=== PATIENT | female | born 1940 | race Caucasian/White ===

== ENCOUNTER 2018-06-04 21:27 | Emergency (ER) | payer MEDICARE, OTHER ==
[~2018-06-04] VITALS: Ht 157.5 cm; Wt 62.1 kg
--- NOTE | 2018-06-04 21:35 | NUR ---
PT BROWN FROM [facility]IS CENTER FOR HIGH BP, PER PA, PT BP POST DIALYSIS 210/100. PT COMPLETED DIALYSIS, 1.2KG REMOVED. PT'S LOC AT BASELINE. AFEBRILE. PT ON MONITOR IN BED 3 WITH SON AT BEDSIDE. WILL CONTINUE TO MONITOR.
--- NOTE | 2018-06-04 21:45 | NUR ---
TECH AT BEDSIDE FOR EKG
--- NOTE | 2018-06-04 22:04 | NUR ---
PT RECEIVED FROM TRANSPORT ON VENT VIA TRACH, SETTINGS CHARTED. TRACH SECURED VIA TRACH TIE. AIRWAY PATENT. PT AWAKE. AMBU BAG AND BACKUP TRACH AT BEDSIDE ALARMS SET AND AUDIBLE. DISCONNECT ALARMS CHECKED. VENT PLUGGED INTO RED OUTLET. SUCTIONED A SMALL AMOUNT OF THICK YELLOW SECRETIONS. ORAL SECRETIONS SUCTIONED FROM MOUTH VIA YANKAUER. HEAD OF BED AT 30 DEGREES. PT RECEIVING NO BREATHING TX AT THIS TIME Addendum: 06/04/18 at 2209 by JAY RITCHIE RT Amended: Links added.
[2018-06-04 22:05] LABS: BASOPHILS # (AUTO) 0.1 /CMM (0.0-0.2); BASOPHILS % (AUTO) 0.7 % (0.0-2.0); EOSINOPHILS % (AUTO) 1.2 % (0.0-6.0); HEMATOCRIT 25 % (33-45); HEMOGLOBIN 8.4 g/dL (11.5-14.8); LYMPHOCYTES # (AUTO) 0.3 /CMM (0.8-4.8); LYMPHOCYTES % (AUTO) 3.8 % (20.0-44.0); MEAN CORPUSCULAR HGB CONC 33 g/dl (31.0-36.0); MEAN CORPUSCULAR VOLUME 95 fL (82-100); MONOCYTES # (AUTO) 0.8 /CMM (0.1-1.30); MONOCYTES % (AUTO) 9.2 % (2.0-12.0); NEUTROPHILS # (AUTO) 7.7 /CMM (1.8-8.9); NEUTROPHILS % (AUTO) 85.1 % (43.0-81.0); PLATELET COUNT (AUTO) 577 /CMM (150-450); RED BLOOD CELL COUNT(AUTO) 2.66 MIL/uL (4.0-5.2); WHITE BLOOD COUNT (AUTO) 9.1 K/uL (4.3-11.0)
[2018-06-04 22:15] LABS: CALCIUM, SERUM 9.5 mg/dL (8.5-10.1); CARBON DIOXIDE 27 mmol/L (21-32); CHLORIDE 103 mmol/L (98-107); CREATININE 1.1 mg/dL (0.6-1.3); GLUCOSE 82 mg/dL (74-106); POTASSIUM 3.4 mmol/L (3.5-5.1); SODIUM SERUM 139 mmol/L (136-145); UREA NITROGEN, BLOOD 22 mg/dL (7-18)
[2018-06-04 22:21] LABS: ALANINE AMINOTRANSFERASE 16 U/L (12-78); ALBUMIN 1.9 g/dL (3.4-5.0); ALKALINE PHOSPHATASE 142 U/L (46-116); ASPARTATE AMINOTRANSFERASE 26 U/L (15-37); BILIRUBIN,DIRECT 0.1 mg/dL (0.0-0.2); BILIRUBIN,TOTAL 0.4 mg/dL (0.2-1.0); LIPASE 218 U/L (73-393); TOTAL PROTEIN, SERUM 7.4 g/dL (6.4-8.2)
[2018-06-04 22:47] VITALS: BP 113/30
[2018-06-04 23:15] VITALS: BP 159/75
--- NOTE | 2018-06-04 23:31 | NUR ---
YENNY 0100 TRIP#[id number] Addendum: 06/04/18 at 2332 by CLAUDY JANIS RAMON 0100 TRIP#[id number]
--- NOTE | 2018-06-04 23:34 | NUR ---
PAGED DR SHAH REGARDING THIS PATIENT.
--- NOTE | 2018-06-05 00:29 | NUR ---
REPORT GIVEN TO JEOVANY PURDY AT [facility] FOR THERON
--- NOTE | 2018-06-05 00:30 | NUR ---
PT TAKEN VIA PA
== END 2018-06-05 00:57 | disposition short-term general hospital (02) ==
LOC: ER 21:29
DX: D63.1 Anemia in chronic kidney disease (principal); E11.22 Type 2 diabetes mellitus with diabetic chronic kidney disease; I12.0 Hypertensive chronic kidney disease with stage 5 chronic kidney disease or end stage renal disease; N18.6 End stage renal disease; J96.10 Chronic respiratory failure, unspecified whether with hypoxia or hypercapnia; F03.90 Unspecified dementia, unspecified severity, without behavioral disturbance, psychotic disturbance, mood disturbance, and anxiety; I73.9 Peripheral vascular disease, unspecified; I48.91 Unspecified atrial fibrillation; K21.9 Gastro-esophageal reflux disease without esophagitis; F41.9 Anxiety disorder, unspecified; R13.10 Dysphagia, unspecified; G47.00 Insomnia, unspecified; R94.31 Abnormal electrocardiogram [ECG] [EKG]; Z86.74 Personal history of sudden cardiac arrest
CPT/HCPCS: 36415; 80048-TC; 80076-TC; 83690-TC; 84484-TC; 85025-TC

== ENCOUNTER 2018-08-08 18:29 | Inpatient (IN) | payer MEDICARE, OTHER ==
[~2018-08-08] VITALS: Ht 157.5 cm; Wt 73.0 kg
[2018-08-08 18:50] VITALS: BP 116/25
--- NOTE | 2018-08-08 19:00 | NUR ---
PT BIBPA FOR LOW BLOOD PRESSURE FROM DIALYSIS CENTER. PER EMT, DAILYSIS CENTER DID NOT HAVE THIGH CUFFF. PT ON THE VENTILATOR, SETTING AC 8, PEEP 5, 40% O2. PT AXO0. PT PUT ON THE INTERNAL CONTROLS ANALYST AND PULSE OX.
--- NOTE | 2018-08-08 19:19 | NUR ---
RECEIVED TRACH PT ON VENT. CAME TO ER FOR LOW BP. SETTINGS FROM TRANSPORT RT AC 8, 350, 40%, +5. PT TRACH IS A SHILEY 8. TRACH PATENT AND WELL SECURED. PHOTOGRAMMETRIC SURVEYOR DONE. VENT PLUGGED INTO RED OUTLET. ALARMS TESTED AND WELL FUNCTIONING WITH AMBU BAG PLACED AT BEDSIDE. SX MODERATE AMOUNT OF THICK YELLOW SECRETIONS. WILL CONT TO MONITOR PT. Addendum: 08/08/18 at 2 by MAX AHMADI RT Amended: Links added.
[2018-08-08 19:29] LABS: BASOPHILS % (AUTO) 0.2 % (0.0-2.0); EOSINOPHILS % (AUTO) 0.1 % (0.0-6.0); HEMATOCRIT 26 % (33-45); HEMOGLOBIN 8.6 g/dL (11.5-14.8); LYMPHOCYTES # (AUTO) 0.4 /CMM (0.8-4.8); LYMPHOCYTES % (AUTO) 4.7 % (20.0-44.0); MEAN CORPUSCULAR HGB CONC 34 g/dl (31.0-36.0); MEAN CORPUSCULAR VOLUME 93 fL (82-100); MONOCYTES # (AUTO) 0.8 /CMM (0.1-1.30); MONOCYTES % (AUTO) 8.7 % (2.0-12.0); NEUTROPHILS # (AUTO) 7.5 /CMM (1.8-8.9); NEUTROPHILS % (AUTO) 86.3 % (43.0-81.0); PLATELET COUNT (AUTO) 185 /CMM (150-450); RED BLOOD CELL COUNT(AUTO) 2.74 MIL/uL (4.0-5.2); WHITE BLOOD COUNT (AUTO) 8.7 K/uL (4.3-11.0)
--- NOTE | 2018-08-08 19:37 | NUR ---
XRAY AT BEDSIDE.
[2018-08-08 19:42] LABS: ALANINE AMINOTRANSFERASE 10 U/L (12-78); ALBUMIN 1.5 g/dL (3.4-5.0); ALKALINE PHOSPHATASE 137 U/L (46-116); ASPARTATE AMINOTRANSFERASE 16 U/L (15-37); BILIRUBIN,DIRECT 0.1 mg/dL (0.0-0.2); BILIRUBIN,TOTAL 0.3 mg/dL (0.2-1.0); CALCIUM, SERUM 9.1 mg/dL (8.5-10.1); CARBON DIOXIDE 31 mmol/L (21-32); CHLORIDE 96 mmol/L (98-107); GLUCOSE 128 mg/dL (74-106); POTASSIUM 5.4 mmol/L (3.5-5.1); SODIUM SERUM 132 mmol/L (136-145); TOTAL PROTEIN, SERUM 6.5 g/dL (6.4-8.2)
[2018-08-08 19:43] LABS: UREA NITROGEN, BLOOD 86 mg/dL (7-18)
--- NOTE | 2018-08-08 20:54 | NUR ---
CALLED [employer] ON-CALL PAGED
[2018-08-08 20:59] VITALS: BP 103/75
--- NOTE | 2018-08-08 21:30 | NUR ---
CALLED [facility] [phone] ITS [facility] [place]
--- NOTE | 2018-08-08 22:00 | NUR ---
BED 120-1
--- NOTE | 2018-08-08 22:25 | NUR ---
REPORT GIVEN TO LUCY THAYER FOR THERON.
[2018-08-08 22:35] VITALS: BP 121/69
--- NOTE | 2018-08-08 22:55 | NUR ---
MARY LOU RN NOTES RECEIVED PATIENT REPORT FROM SUPERVISOR REAL ESTATE OFFICE AND RECEIVED PATIENT ON JUJU. PATIENT I VENT/ TRACH DEPENDANT, ON SETTINGS ORDERED RT AT THE BEDSIDE. PATIENT WAS PLACED ON ZIPPER SLIDE ATTACHER WITH SR, RIGHT UPPER ARM IV LINE IS PATIENT AND INTACT. G TUBE IS IN PLACE, CHECKED FOR POSITIVE PLACEMENT. SKIN ASSESSMENT IS DONE AND WOUND CARE CONSULT IS IN PLACE. CALLED THE SNF AND ASKED FOR ALL CURRENT MEDICATIONS LIST AND MED RECON IS DONE. ALL SAFETY MEASURES ARE IMPLEMENTED, BED IN LOW, LOCKED POSITION, CALL LIGHT IN REACH. WILL CONTINUE TO MONITOR PATIENT CLOSELY.WILL INDORSE TO AM SHIFT RN FOR ARMORED CAR GUARD AND DRIVER.
[2018-08-08 23:00] VITALS: BP 121/69
[2018-08-09] MEDS ORDERED: ONDANSETRON HCL/PF 4 MG/2 ML VIAL IVP PRN (00:30)
[2018-08-09] MEDS ORDERED: MAGNESIUM HYDROXIDE 30 ML UDC PO PRN (00:30)
[2018-08-09] MEDS ORDERED: ZOLPIDEM TARTRATE 5 MG TABLET PO PRN (00:30)
[2018-08-09] MEDS ORDERED: ACETAMINOPHEN 325 MG TABLET PO PRN (00:30)
[2018-08-09] MEDS ORDERED: MAG HYDROX/AL HYDROX/SIMETH 30 ML UDC PO PRN (00:30)
[2018-08-09] MEDS ORDERED: DEXT15DR6 EACHEYE (02:11)
[2018-08-09] MEDS ORDERED: HYDR-4384 GT ×2 (02:11→08:11)
[2018-08-09] MEDS ORDERED: NA P133E RC (02:11)
[2018-08-09] MEDS ORDERED: ZINC220C8 GT (02:11)
[2018-08-09] MEDS ORDERED: LANS30CA56 GT (02:11)
[2018-08-09] MEDS ORDERED: AMIO200T4 GT (02:11)
[2018-08-09] MEDS ORDERED: ALPR0.5T GT ×2 (02:11→08:11)
[2018-08-09] MEDS ORDERED: FOLI0.8T2 GT (02:11)
[2018-08-09] MEDS ORDERED: LINE600I IV (02:11)
[2018-08-09] MEDS ORDERED: MERO500P IV (02:11)
[2018-08-09] MEDS ORDERED: METO50TA16 GT (02:11)
[2018-08-09] MEDS ORDERED: ACET160E36 GT (02:11)
[2018-08-09] MEDS ORDERED: MAGN400O21 GT (02:11)
[2018-08-09] MEDS ORDERED: VIT500LI GT (02:11)
[2018-08-09] MEDS ORDERED: BISA10SU61 RC (02:11)
[2018-08-09] MEDS ORDERED: *INS NOVA SQ (02:11)
[2018-08-09] MEDS ORDERED: ASPI-605 GT (02:11)
[2018-08-09] MEDS: NEPRO 1,000 ML BOTTLE GT PRN (03:13)
[2018-08-09 04:00] VITALS: BP 113/28
--- NOTE | 2018-08-09 05:43 | NUR ---
PATIENT RECEIVED ON TRACH TO VENT WITH SETTINGS OF AC 8, 350 VT, 40%, +5. SUCTIONED FOR MINIMAL, THIN, YELLOW SECRETIONS. AMBU BAG AT BEDSIDE. VENT AND PULSE OXIMETER ALARMS AUDIBLE AND VISIBLE. VENT PLUGGED INTO RED OUTLET. Addendum: 08/09/18 at 0544 by EMILY MALDONADO RT Amended: Links added.
--- NOTE | 2018-08-09 07:00 | NUR ---
NUTRITIONAL SERVICES DIRECTOR OPENING NOTES RECEIVED PT IN BED, HOB ELEVATED 30 DEG ON VENT TOLERATING WELL. NO S/SX OF RESP DISTRESS. MITTENS ON BOTH HANDS. RIGHT HAND BLOODY, PER PM NURSE, PT SCRATCHES SKIN AGAINST MITTEN. PT ABLE TO MOUTH WORDS, A/OX2. SR ON TELE. NEPRO GTF RUNNING AT 30 ML/HR. NO RESIDUAL NOTED. FRANCI IV LINE IN PLACE. BED IN LOCKED/LOWEST POSITION. CALL LIGHT IN REACH. WILL CONT TO MONITOR.
[2018-08-09 08:00] VITALS: BP 111/46
[2018-08-09] MEDS ORDERED: POLY15DR40 EACHEYE (08:11)
[2018-08-09] MEDS ORDERED: MAGN400O6 GT (08:11)
[2018-08-09] MEDS ORDERED: BLOO-668 IN (08:11)
[2018-08-09] MEDS ORDERED: NUT.237L67 GT (08:11)
[2018-08-09] MEDS: HYDROCODONE/APAP 5/325MG 1 EACH TABLET PO PRN (11:53)
[2018-08-09 12:00] VITALS: BP 132/59
[2018-08-09] MEDS ORDERED: NA PHOS,M-B/NA PHOS,DI-BA 1 EA ENEMA RC PRN (14:00)
[2018-08-09] MEDS ORDERED: BISACODYL SUPP (10 MG) 10 MG/SUPP.RECT SUPP.RECT RC PRN (14:00)
[2018-08-09] MEDS ORDERED: NEPRO 1,000 ML BOTTLE GT SCH (14:00)
[2018-08-09] MEDS ORDERED: POLYVINYL ALCOHOL 15 ML BOTTLE EACHEYE PRN (14:00)
[2018-08-09] MEDS: MEROPENEM 500 MG in IV NS 0.9% 50 ML IV SCH (15:35)
[2018-08-09] MEDS: DAKINS QUARTER STRENGTH (0.125%) 480 ML BOTTLE TOP SCH ×2 (15:35→21:46)
[2018-08-09 16:00] VITALS: BP 119/49
[2018-08-09] MEDS: IPRATROPIUM NEB FS 0.5 MG/2.5 ML AMPUL.NEB NEB SCH ×2 (16:06→20:11)
[2018-08-09] MEDS: ALBUTEROL HALF STRENGTH 1.25 MG/3 ML VIAL.NEB NEB SCH ×2 (16:06→23:08)
[2018-08-09] MEDS: ACETYLCYSTEINE 10% SOLN 400 MG/4 ML VIAL NEB SCH ×2 (16:06→23:08)
[2018-08-09] MEDS: ALPRAZOLAM 0.5 MG TABLET GT PRN (18:00)
--- NOTE | 2018-08-09 19:07 | NUR ---
INTERNAL MEDICINE PHYSICIAN END OF SHIFT NOTES PT IN BED, MITTENS ON BOTH HANDS. PT STILL PULLING AT LINES WHEN REMOVED. GTF RUNNING WITH NO RESIDUAL NOTED. EXTREMITIES OFFLOADED. KCI MATTRESS ON BED, PT TOLERATED TREATMENTS WELL. SITTER AT BEDSIDE. ON VENT SETTINGS TOLERATING WELL. WILL ENDORSE TO [facility] NURSE FOR THERON.
[2018-08-09 20:00] VITALS: BP 103/53
[2018-08-09] MEDS: METOPROLOL TARTRATE 50 MG TABLET GT SCH (21:42)
[2018-08-09] MEDS: AMIODARONE HCL 200 MG TABLET GT SCH (21:43)
[2018-08-09] MEDS: LINEZOLID RTU BAG 600 MG in PREMIX 1 EA IV SCH (21:45)
[2018-08-10] VITALS: BP 110/61
[2018-08-10] MEDS: IPRATROPIUM NEB FS 0.5 MG/2.5 ML AMPUL.NEB NEB SCH ×4 (01:30→19:45)
[2018-08-10 04:00] VITALS: BP 109/58
[2018-08-10] MEDS: MEROPENEM 500 MG in IV NS 0.9% 50 ML IV SCH ×2 (04:36→15:41)
[2018-08-10 06:26] LABS: BASOPHILS % (AUTO) 0.3 % (0.0-2.0); EOSINOPHILS % (AUTO) 0.1 % (0.0-6.0); HEMATOCRIT 24 % (33-45); HEMOGLOBIN 7.9 g/dL (11.5-14.8); LYMPHOCYTES # (AUTO) 0.4 /CMM (0.8-4.8); LYMPHOCYTES % (AUTO) 3.6 % (20.0-44.0); MEAN CORPUSCULAR HGB CONC 33 g/dl (31.0-36.0); MEAN CORPUSCULAR VOLUME 92 fL (82-100); MONOCYTES # (AUTO) 1.2 /CMM (0.1-1.30); MONOCYTES % (AUTO) 10.3 % (2.0-12.0); NEUTROPHILS # (AUTO) 9.9 /CMM (1.8-8.9); NEUTROPHILS % (AUTO) 85.7 % (43.0-81.0); PLATELET COUNT (AUTO) 208 /CMM (150-450); RED BLOOD CELL COUNT(AUTO) 2.61 MIL/uL (4.0-5.2); WHITE BLOOD COUNT (AUTO) 11.6 K/uL (4.3-11.0)
[2018-08-10 06:48] LABS: ALANINE AMINOTRANSFERASE 12 U/L (12-78); ALBUMIN 1.5 g/dL (3.4-5.0); ALKALINE PHOSPHATASE 185 U/L (46-116); ASPARTATE AMINOTRANSFERASE 19 U/L (15-37); BILIRUBIN,TOTAL 0.4 mg/dL (0.2-1.0); CALCIUM, SERUM 8.9 mg/dL (8.5-10.1); CARBON DIOXIDE 28 mmol/L (21-32); CHLORIDE 95 mmol/L (98-107); CREATININE 1.8 mg/dL (0.6-1.3); GLUCOSE 149 mg/dL (74-106); MAGNESIUM 2.4 mg/dL (1.8-2.4); PHOSPHORUS 3.3 mg/dL (2.5-4.9); SODIUM SERUM 131 mmol/L (136-145); TOTAL PROTEIN, SERUM 6.5 g/dL (6.4-8.2)
[2018-08-10 06:49] LABS: UREA NITROGEN, BLOOD 86 mg/dL (7-18)
--- NOTE | 2018-08-10 07:30 | NUR ---
GRAIN ELEVATOR CLERK NOTES RECEIVED REPORT FROM SENIOR ENGINEERING TECHNICIAN RN. PT IN BED, MITTENS ARE OFF BOTH HANDS. PT STILL PULLING AT LINES WHEN REMOVED. GTF RUNNING WITH NO RESIDUAL NOTED. EXTREMITIES OFFLOADED. KCI MATTRESS ON BED, PT TOLERATED TREATMENTS WELL. SITTER AT BEDSIDE. ON VENT SETTINGS TOLERATING WELL. WILL CONTINUE TO MONITOR.
[2018-08-10 07:50] LABS: CHOLESTEROL 97 mg/dL (<200); HDL CHOLESTEROL 49 mg/dL (40-60); LDL 43 mg/dL (0-99); THYROID STIMULATING HORMONE 4.842 uIU/mL (0.358-3.74); TRIGLYCERIDES 91 mg/dL (30-150)
[2018-08-10 08:00] VITALS: BP 125/72
[2018-08-10] MEDS: ALBUTEROL HALF STRENGTH 1.25 MG/3 ML VIAL.NEB NEB SCH ×3 (08:10→23:35)
[2018-08-10] MEDS: ACETYLCYSTEINE 10% SOLN 400 MG/4 ML VIAL NEB SCH ×3 (08:11→23:35)
[2018-08-10] MEDS: ASPIRIN EC 81 MG TABLET.DR PO SCH (09:25)
[2018-08-10] MEDS: ZINC SULFATE 220 MG CAPSULE GT SCH (09:25)
[2018-08-10] MEDS: VIT B CMPLX 3/FA/VIT C/BIOTIN 1 TAB TABLET GT SCH (09:25)
[2018-08-10] MEDS: ASCORBIC ACID 500 MG TABLET GT SCH (09:26)
[2018-08-10] MEDS: METOPROLOL TARTRATE 50 MG TABLET GT SCH ×2 (09:26→21:23)
[2018-08-10] MEDS: AMIODARONE HCL 200 MG TABLET GT SCH ×2 (09:26→21:22)
[2018-08-10] MEDS: LINEZOLID RTU BAG 600 MG in PREMIX 1 EA IV SCH ×2 (09:27→21:35)
[2018-08-10] MEDS: DAKINS QUARTER STRENGTH (0.125%) 480 ML BOTTLE TOP SCH ×2 (09:28→21:25)
[2018-08-10] MEDS: CADEXOMER IODINE 40 GM TUBE TP SCH (09:29)
[2018-08-10] MEDS ORDERED: LIDOCAINE 2%-EPI 1:100,000 30 ML VIAL TP ONE (09:30)
[2018-08-10] MEDS ORDERED: EPOETIN ALFA (10,000 UNIT) 10,000 UNIT/ML VIAL IV ONE (09:30)
[2018-08-10] MEDS: ALPRAZOLAM 0.5 MG TABLET GT PRN (09:44)
--- NOTE | 2018-08-10 10:03 | NUR ---
WOUND CARE CONSULT WOUND CARE RECEIVED CONSULT FOR SACRAL WOUND/MULTIPLE WOUNDS. WOUND CARE WILL DEFER CONSULT AND ALL TREATMENT PLANS TO PLASTIC SURGICAL TEAM INCLUDING DPM DR FOURNIER THE ARE CURRENTLY FOLLOWING THIS PATIENT. PATIENT WITH EMILIA AT 11, ALL PRESSURE ULCER PREVENTION MEASURES ARE NOTED TO BE IN PLACE AT THIS TIME. WILL SEE PRN.
--- NOTE | 2018-08-10 10:45 | NUR ---
PROFESSOR OF KINESIOLOGY NOTES ASSISTED STEPHANIE ARECHIGA WITH WOUND DEBRIDEMENT AT BEDSIDE OF SACRAL WOUND STAGE 4. COUNTY MANAGER PACKED WOUND AND COVERED.
[2018-08-10 11:33] LABS: IRON, SERUM 85 ug/dl (50-175); TOTAL IRON BINDING CAPACITY 108 ug/dl (250-450)
[2018-08-10 12:00] VITALS: BP 117/53
[2018-08-10 16:00] VITALS: BP 123/71
[2018-08-10 17:35] LABS: ABG BASE EXCESS 5.7 mmol/L; ABG PCO2 44.4 mmHg (35.0-45.0); ABG PH 7.451 (7.350-7.450); ABG PO2 87.2 mmHg (75.0-100.0); AaDO2 146.9 mmHg; COHb 1.1 % (0.5-1.5); MetHb 0.9 % (0.0-1.5); O2Hb 94.1 % (94.0-97.0); PEEP,BG 5 cm H2O; SITE, ABG Left Brachial; VT, ABG 350 mL
--- NOTE | 2018-08-10 19:42 | NUR ---
RN CLOSING NOTES GAVE REPORT TO BRANCH CREDIT COUNSELOR RN. PT IN BED, MITTENS ARE ON BOTH HANDS. PT STILL PULLING AT LINES WHEN REMOVED. GTF RUNNING WITH NO RESIDUAL NOTED. EXTREMITIES OFFLOADED. KCI MATTRESS ON BED, PT TOLERATED TREATMENTS WELL. SITTER AT BEDSIDE. ON VENT SETTINGS TOLERATING WELL. WILL ENDORSE CONTINUITY OF CARE TO BRANCH CREDIT COUNSELOR RN.
--- NOTE | 2018-08-10 19:45 | NUR ---
RT PT RECEIVED TRACHED ON [facility] VENT ON CHARTED SETTINGS. NO SIGNS OF RESP DISTRESS/NOTED. AIRWAY PATENT AND SECURED. PT SUCTIONED. PT GIVEN HHN TX. ALARMS SET AND AUDIBLE. VENT CONNECTED TO RED OUTLET. WILL CONT TO MONITOR. Addendum: 08/10/[address] ARMAS RT Amended: Links added.
[2018-08-10 20:00] VITALS: BP 91/35
[2018-08-11] VITALS (107 sets, daily range): BP systolic 63–153; BP diastolic 23–63
[2018-08-11] MEDS: IPRATROPIUM NEB FS 0.5 MG/2.5 ML AMPUL.NEB NEB SCH ×4 (01:32→19:54)
[2018-08-11] MEDS: NEPRO 1,000 ML BOTTLE GT PRN ×2 (03:18→13:30)
[2018-08-11] MEDS: MEROPENEM 500 MG in IV NS 0.9% 50 ML IV SCH ×2 (03:18→15:04)
[2018-08-11] MEDS: HYDROCODONE/APAP 5/325MG 1 EACH TABLET PO PRN ×3 (03:30→15:04)
--- NOTE | 2018-08-11 05:11 | NUR ---
RT RT RESPOND TO RAPID RESPONSE TO SEE THE PATIENT UNRESPONSIVE AND SPO2 OF 89%. PT SUCTIONED. FIO2 SETTINGS CHANGED TO 100% PER MD ORDER. SPO2 INCREASE TO 100%. PT TRANSFER TO ICU.
--- NOTE | 2018-08-11 05:30 | NUR ---
RN NOTES AROUND 0520 HEARD RN CHRIS ASKED EXHIBIT CLEANER TO CALL RT BEC PATIENT UNRESPONSIVE. WENT TO PATIENT ROOM , OTHER STAFF WENT TO THE ROOM; PATIENT ON VENT, UNRESPONSIVE; CALLED WELDER FABRICATOR; BP TAKEN 85/28 BS CHECKED 212 O2 SAT86%; EMILEE MCCLELLAN NP AT THE SEEN RIGHT AWAY. AWARE OF THE V/S VERBAL ORDER OBTAINED FOR 500ML NS BOLUS AND TRANSFER TO ICU. EXHIBIT CLEANER CALLED ICU FOR BED; ORDERS PUT IN AND SPOKE TO APPLICATION SPECIALIST. BOLUS STARTED BY ANOTHER RN. ICU HORTICULTURAL FARMER ED AWARE OF LEVOPHED ORDER. TRANSFERRED PATIENT AROUND 0530 BY BED. INSTRUCTED CHRIS, PRIMARY RN TO NOTIFY FAMILY OF TRANSFER.
--- NOTE | 2018-08-11 05:40 | NUR ---
VOICE AND DATA TECHNICIAN: RECEIVED CHRONIC VENT DEPENDENT PT FROM TELE. ABLE TO OPEN EYES BUT NOT FOLLOWING COMMANDS. NOTED SKIN PALE LOOKING AND S/P SACRAL DEBRIDEMENT WT LARGE AMT. OF SACRAL WOUND BLEEDING. ONGOING NS 500 ML BOLUS. CALLED AND NOTIFIED STEPHANIE HEBERT WT STAT LAB ORDERS. NOTED AND CARRIED OUT.
--- NOTE | 2018-08-11 05:59 | NUR ---
RN NOTES PATIENT RECIEVED IN BED, AWAKE ALERT AND RESPONSIVE, NOTED WITH CONFUSION. NO DISTRESS NOTED. BREATHING EVEN AND UNLABORED. VENT SETTING WELL TOLERATED. NO PHYSICAL MANIFESTATION OF PAIN OR DISCOMFORT. VITAL SIGNS WNL. KEPT CLEAN AND DRY. TURNED AND REPOSITION EVERY TWO HOURS WITH LIMBS IN FUNCTIONAL ALIGNMENT. NORCO GIVEN FOR PAIN PRIOR TO WOUND TREATMENT STARTED AT 0330. NOTED WITH BLEEDING IN SACRUM STATUS POST WOUND DEBRIBEMENT. PEG TUBE IN PLACE, PATENT AND INTACT. FEEDING WELL TOLERATED. NO RESIDUAL NOTED. AT AROUND 0520 NOTED PATIENT TO BE UNRESPONSIVE WITH 02SAT BETWEEN 88 TO 92%. SUCTIONED SMALL AMOUNT OF YELLOWISH THIN SECRETION. CALLED PATIENT'S NAME, STIMULATED STILL WITH NO RESPONSE AND OBSERVED SATURATION GOING DOWN TO 82%. CALLED RAPID RESPONSE. SEEN BY DR HEBERT WITH ORDERS FOR FiO2 CHANGE, BOLUS 500ML, LEVOPHED IV DRIP AND TRANSFER TO ICU. NOTED AND CARRIED OUT. TRANSFERRED AT 053. REPORTS GIVEN TO VENICE AND ED.
[2018-08-11 06:10] LABS: BASOPHILS % (AUTO) 0.1 % (0.0-2.0); EOSINOPHILS % (AUTO) 0.1 % (0.0-6.0); LYMPHOCYTES # (AUTO) 0.5 /CMM (0.8-4.8); LYMPHOCYTES % (AUTO) 3.3 % (20.0-44.0); MEAN CORPUSCULAR HGB CONC 32 g/dl (31.0-36.0); MEAN CORPUSCULAR VOLUME 94 fL (82-100); MONOCYTES # (AUTO) 1.6 /CMM (0.1-1.30); MONOCYTES % (AUTO) 10.5 % (2.0-12.0); NEUTROPHILS # (AUTO) 13.1 /CMM (1.8-8.9); PLATELET COUNT (AUTO) 198 /CMM (150-450); WHITE BLOOD COUNT (AUTO) 15.3 K/uL (4.3-11.0)
[2018-08-11] MEDS ORDERED: NOREPINEPHRINE 4 MG/4 ML AMPUL IV ONE (06:20)
[2018-08-11 06:25] LABS: HEMOGLOBIN 3.6 g/dL (11.5-14.8); RED BLOOD CELL COUNT(AUTO) 1.21 MIL/uL (4.0-5.2)
[2018-08-11 06:26] LABS: HEMATOCRIT 11 % (33-45)
[2018-08-11 06:26] LABS: ABG OXYGEN SATURATION 46.8 % (92.0-98.5); ABG PCO2 63.5 mmHg (35.0-45.0); ABG PH 7.215 (7.350-7.450); ABG PO2 32.8 mmHg (75.0-100.0); AaDO2 616.7 mmHg; COHb 0.3 % (0.5-1.5); MetHb 2.4 % (0.0-1.5); O2Hb 45.5 % (94.0-97.0); PEEP,BG 5 cm H2O; SITE, ABG Right Radial; VT, ABG 350 mL
[2018-08-11 06:28] LABS: CALCIUM, SERUM 8.1 mg/dL (8.5-10.1); CARBON DIOXIDE 24 mmol/L (21-32); CHLORIDE 102 mmol/L (98-107); CREATININE 1.7 mg/dL (0.6-1.3); GLUCOSE 206 mg/dL (74-106); MAGNESIUM 2.2 mg/dL (1.8-2.4); PHOSPHORUS 3.5 mg/dL (2.5-4.9); POTASSIUM 4.7 mmol/L (3.5-5.1); SODIUM SERUM 137 mmol/L (136-145); UREA NITROGEN, BLOOD 73 mg/dL (7-18)
[2018-08-11] MEDS: NOREPINEPHRINE 16 MG in IV D5W 500 ML IV PRN ×2 (06:29→15:21)
[2018-08-11] MEDS ORDERED: SODIUM BICARBONATE SYR 50 MEQ/50 ML DISP.SYRIN IV STA (06:34)
[2018-08-11] MEDS ORDERED: SODIUM BICARBONATE SYR 50 MEQ/50 ML DISP.SYRIN ONE (06:36)
--- NOTE | 2018-08-11 06:40 | NUR ---
REGIONAL BUSINESS MANAGER: NOTIFIED STEPHANIE HEBERT FOR CRITICALLY LOW H&H AND ABG RESULTS WT ORDERS FOR 2UNITS PRBC AND TO GIVE 1 AMP OF BICARB IV. NOTED AND CARRIED OUT. PT NOW ON LEVOPHED AT 5MCG/MIN. WILL CONTINUE TO MONITOR.
--- NOTE | 2018-08-11 07:10 | NUR ---
Peep changed to +0 per promotional advertising assistant. Addendum: 08/11/18 at 0740 by BO VIVEROS RT Amended: Links added.
[2018-08-11 07:14] LABS: ABG OXYGEN SATURATION 98.9 % (92.0-98.5); ABG PCO2 55.3 mmHg (35.0-45.0); ABG PH 7.321 (7.350-7.450); AaDO2 272.7 mmHg; COHb 1.2 % (0.5-1.5); O2Hb 95.7 % (94.0-97.0); PEEP,BG 5 cm H2O; SITE, ABG Left Brachial; VT, ABG 350 mL
[2018-08-11 07:16] LABS: BAND % (MANUAL) 7 % (0.0-5.0); LYMPHOCYTES % (MANUAL) 3 % (16-48); MONOCYTES % (MANUAL) 8 % (0-11.0); MYELOCYTES % 1 % (0-0); NEUTROPHILS % (MANUAL) 81 (42-76)
--- NOTE | 2018-08-11 07:20 | NUR ---
HOME CARE NURSE: pt.is obtunded, can open eyes spont. for seconds, rest, weak arms uncontrolled activity, uncooperative, very weak, pale, on B.mittens, SR, on 5mcg/m Levophed, BP 90/30, will increase Levo, peep changed to 0, ABG done: pH 7.32/55/385/27, hold GTF now, called to son, got BT, PICC placement consent, H/H 3.6, night nurse confirmed: ordered STAT 2 units PRBC
--- NOTE | 2018-08-11 07:25 | NUR ---
O2 titrated post abg, vent setting changes recommended to MD Addendum: 08/11/18 at 0751 by BO VIVEROS RT Amended: Links added.
--- NOTE | 2018-08-11 07:25 | NUR ---
REGIONAL CLIMATE CHANGE ANALYST: GT is occluded
[2018-08-11] MEDS: ACETYLCYSTEINE 10% SOLN 400 MG/4 ML VIAL NEB SCH ×2 (07:48→15:23)
[2018-08-11] MEDS: ALBUTEROL HALF STRENGTH 1.25 MG/3 ML VIAL.NEB NEB SCH ×2 (07:48→15:23)
--- NOTE | 2018-08-11 08:10 | NUR ---
SET OFF PRESS OPERATOR: getting Levophed via PIVL, blood return+, unable to place PIVL over arms d/t edema, removed arms dressing, old AV shunts on both arms, nobody reported, called HD nurse Bertha for verification and possible start HD today for blood transfusion via R.chest permcath, is in unit, updated with all above, ABG, changed Rate on vent to 10, called for TLC placement
--- NOTE | 2018-08-11 08:20 | NUR ---
RR INCREASED TO 10 PER ADRIEN PHOTOGRAPHIC ARTIST ORDERS Addendum: 08/11/18 at 0820 by JULY OROZCO RT Amended: Links added.
[2018-08-11] MEDS: ZINC SULFATE 220 MG CAPSULE GT SCH (09:00)
[2018-08-11] MEDS: ASCORBIC ACID 500 MG TABLET GT SCH (09:00)
[2018-08-11] MEDS: VIT B CMPLX 3/FA/VIT C/BIOTIN 1 TAB TABLET GT SCH (09:00)
[2018-08-11] MEDS: ASPIRIN EC 81 MG TABLET.DR PO SCH (09:00)
[2018-08-11] MEDS: METOPROLOL TARTRATE 50 MG TABLET GT SCH ×2 (09:00→21:00)
[2018-08-11] MEDS: AMIODARONE HCL 200 MG TABLET GT SCH ×2 (09:00→21:00)
--- NOTE | 2018-08-11 09:30 | NUR ---
PARACHUTE SUPERVISOR: tried to place L.IJ TLC, unsuccessfully d/t low BP, hypovolemia, was in room/updated with ABG, vent.setting, ordered: CXR stat
[2018-08-11] MEDS ORDERED: PHENYLEPHRINE 80 MG in IV D5W 250 ML IV PRN (10:00)
--- NOTE | 2018-08-11 10:00 | NUR ---
SOFTWARE TOOLS BUILD ENGINEER: Levophed gtt 40 mcg/m through HD machine, Doc gtt started via PIVL with atbxs, changed Tv to 400, started PRBC BT with HD, removed GT occlusion/stomach residual 160ml/hold GTF
[2018-08-11] MEDS: PHENYLEPHRINE 80 MG in IV D5W 250 ML IV PRN ×2 (10:08→16:54)
--- NOTE | 2018-08-11 10:10 | NUR ---
IMMUNOPATHOLOGIST: is in room, updated with all above, spoke with HD nurse, see new orders
[2018-08-11] MEDS: LINEZOLID RTU BAG 600 MG in PREMIX 1 EA IV SCH ×2 (10:30→21:20)
[2018-08-11] MEDS ORDERED: EPOETIN ALFA (10,000 UNIT) 10,000 UNIT/ML VIAL SQ ONE (11:00)
--- NOTE | 2018-08-11 11:10 | NUR ---
APPLICATION DEVELOPMENT PROJECT MANAGER: 2xPRBC given with HD, continue HD, evaluated CXR, said same as yesterday (left hemithorax opacification), pt.is candidate for bronchoscopy if pt. will be more stable, ordered: recheck H/H in 1hr, if Hb less 7.0 give one PRBC, if less 6.0 give two units PRBC
--- NOTE | 2018-08-11 11:20 | NUR ---
INCREASED VT TO [address] BUENO REQUEST Addendum: 08/11/18 at 1125 by JULY OROZCO RT Amended: Links added.
--- NOTE | 2018-08-11 11:45 | NUR ---
WIRE STRANDER: 40mcg/m Levophed, 200mcg/m Doc gtts now, attempted to place groin TLC but unsuccessfully d/t pt.restless, hemodynamic status
[2018-08-11 12:02] LABS: HEMOGLOBIN 8.2 g/dL (11.5-14.8)
--- NOTE | 2018-08-11 12:10 | NUR ---
RIBBON BLOCKER: said: try to reach or for catheter placement, Hb now: 8.2
--- NOTE | 2018-08-11 13:45 | NUR ---
CHEST PAINTING LEADER: placed in L.IJ TLC, HD done/tolerated well, 600 ml out, trach care done
--- NOTE | 2018-08-11 14:15 | NUR ---
LIVESTOCK SHOWMAN: CXR done, said ok to use it, pt.son is in room, updated with pt.current VS, orders, POC
--- NOTE | 2018-08-11 14:20 | NUR ---
FILTRATION SUPERVISOR: is in room, updated with all above, pressors, BT, HD, H/H, spoke with pt.son, see new orders
--- NOTE | 2018-08-11 14:30 | NUR ---
HOSPITAL CLINIC ASSISTANT: radiology dep.MD called: TLC needs to be readjusted little, got info: evaluated CXR and ok to use TLC, will notify to see CXR report by radiology MD call. SBP over 140, continue titrate pressors
--- NOTE | 2018-08-11 14:45 | NUR ---
BARTENDER MANAGER: called: if possible pull TLC out for 1cm otherwise ok to use it
--- NOTE | 2018-08-11 15:00 | NUR ---
EGG PROCESSING SUPERVISOR: pull out TLC for 1cm with sterile technique, fixed well, new dressing+, still good blood return+ from white, frazier lumens, not from brown as noted before, flushing NS well, no stomach residual now, restarted GTF, gave pain med before wound care
[2018-08-11] MEDS: DAKINS QUARTER STRENGTH (0.125%) 480 ML BOTTLE TOP SCH ×2 (16:54→21:28)
[2018-08-11] MEDS: CADEXOMER IODINE 40 GM TUBE TP SCH (16:55)
--- NOTE | 2018-08-11 17:47 | NUR ---
B2B SALES EXECUTIVE: pt.is awake with open eyes, rest, eyes contact+, weak, unable to follow commands, uncooperative, still with B.mittens, able to pull out lines, no grimacing now, SR, continue titrate pressors down, all skin care, PM care done, GTF WNL, sacral wound care done, still bloody oozing, spoke with charge nurse, agree for H/H recheck at 20.00 with [facility].order for BT, is in room, notified re pt.history, VS, pressors, wounds, BT, HD, lungs status/possible bronchoscopy, anuria, orders, POC,
--- NOTE | 2018-08-11 18:40 | NUR ---
FORESTRY PROFESSOR: pt had dark brown, black big BM, sent stool OB, wound care done again, sent message for to notify and ?continue GTF
--- NOTE | 2018-08-11 19:00 | NUR ---
DRAW END HAND NOTES RECEIVED PATIENT ON THE VENTILATOR WITH TRACHEOSTOMY ON AC MODE ,AWAKE,ALERT,SEEMS TO UNDERSTAND BUT A LITTLE RESTLESS,MOVING ARMS AND TRYING TO PULL, RESTRAINTS MAINTAINED.HYPOTENSIVE ON LEVOPHED DRIP AND NEOSYNEPHRINE DRIP VIA LEFT IJ TRIPLE LUMEN CATH. NOTED SOME BLEEDING FROM THE LEFT IL TRIPLE LUMEN CATH SITE.BUT DRESSING INTACT.eXTREMELY EDEMATOUS UPPER AND LOWER EXTREMITIES .
[2018-08-11 19:56] LABS: OCCULT BLOOD STOOL POSITIVE (NEGATIVE)
--- NOTE | 2018-08-11 20:25 | NUR ---
EMILEE MCCLELLAN RESPONDED TO CALL TO RELAY LACTIC ACID =18,UPDATED ON PATIENT'S STATUS. ORDERED TO GIVE 500 ML NSS BOLUS,NO FURTHER ORDERS.
[2018-08-11] MEDS ORDERED: IV NS 0.9% 500 ML IV ONE (21:00)
[2018-08-11 21:10] LABS: HEMOGLOBIN 6.1 g/dL (11.5-14.8)
--- NOTE | 2018-08-11 21:15 | NUR ---
LAB CALLED FOR HGB OF 6.1 AND HCT =19.WILL TRANSFUES PATIENT ONCE PRBC AVAILABLE.
[2018-08-11 21:21] LABS: BILIRUBIN,DIRECT 0.6 mg/dL (0.0-0.2); BILIRUBIN,TOTAL 1.1 mg/dL (0.2-1.0)
--- NOTE | 2018-08-11 21:45 | NUR ---
1 UNIT PRBC TRANSFUSION STARTED.( 1ST UNIT OF 2 UNITS).
[2018-08-12] VITALS (105 sets, daily range): BP systolic 55–130; BP diastolic 27–75
[2018-08-12] MEDS: ALBUTEROL HALF STRENGTH 1.25 MG/3 ML VIAL.NEB NEB SCH ×4 (00:32→23:28)
[2018-08-12] MEDS: ACETYLCYSTEINE 10% SOLN 400 MG/4 ML VIAL NEB SCH ×4 (00:33→23:28)
[2018-08-12] MEDS: IPRATROPIUM NEB FS 0.5 MG/2.5 ML AMPUL.NEB NEB SCH ×4 (00:33→19:18)
--- NOTE | 2018-08-12 01:00 | NUR ---
PRBC transfusion over,no transfusion reaction noted,Patient status unchanged,not in any respiratory distress,remains awake,trying to talk,seems to be more coherent . BP still labile,still titrating Levophed and Neosynephrine drip .
[2018-08-12] MEDS: PHENYLEPHRINE 80 MG in IV D5W 250 ML IV PRN ×5 (01:11→21:15)
--- NOTE | 2018-08-12 01:20 | NUR ---
2nd unit PRBC started. 0200 AM care done, sacral wound dressing changed,saturated with blood,Noted some area in the sacral wound with some active bleeding.Dressing changed.
[2018-08-12] MEDS ORDERED: NOREPINEPHRINE 4 MG/4 ML AMPUL IV ONE (02:28)
[2018-08-12] MEDS: MEROPENEM 500 MG in IV NS 0.9% 50 ML IV SCH ×2 (02:55→16:25)
[2018-08-12] MEDS: NOREPINEPHRINE 16 MG in IV D5W 500 ML IV PRN ×2 (03:02→16:28)
--- NOTE | 2018-08-12 04:30 | NUR ---
2ND UNIT PRBC TRANSFUSION FINISHED ,NO TRANSFUSION REACTION NOTED. 0500 BLOOD DRAWN FOR LABS.PATIENT REMAINS AWAKE,ALERT.NOT IN NAY DISTRESS.BP IMPROVING,WILL SLOWLY WEAN DOWN PRESSORS TOLERATED.
[2018-08-12 05:28] LABS: BASOPHILS % (AUTO) 0.1 % (0.0-2.0); EOSINOPHILS % (AUTO) 0.6 % (0.0-6.0); HEMATOCRIT 27 % (33-45); HEMOGLOBIN 8.7 g/dL (11.5-14.8); LYMPHOCYTES # (AUTO) 0.5 /CMM (0.8-4.8); LYMPHOCYTES % (AUTO) 1.5 % (20.0-44.0); MEAN CORPUSCULAR HGB CONC 33 g/dl (31.0-36.0); MEAN CORPUSCULAR VOLUME 94 fL (82-100); MONOCYTES # (AUTO) 1.4 /CMM (0.1-1.30); MONOCYTES % (AUTO) 4.5 % (2.0-12.0); NEUTROPHILS # (AUTO) 28.6 /CMM (1.8-8.9); NEUTROPHILS % (AUTO) 93.3 % (43.0-81.0); PLATELET COUNT (AUTO) 81 /CMM (150-450); RED BLOOD CELL COUNT(AUTO) 2.83 MIL/uL (4.0-5.2)
[2018-08-12 05:30] LABS: WHITE BLOOD COUNT (AUTO) 30.6 K/uL (4.3-11.0)
[2018-08-12 05:45] LABS: CALCIUM, SERUM 7.5 mg/dL (8.5-10.1); CARBON DIOXIDE 15 mmol/L (21-32); CHLORIDE 97 mmol/L (98-107); CREATININE 1.7 mg/dL (0.6-1.3); GLUCOSE 147 mg/dL (74-106); PHOSPHORUS 5.2 mg/dL (2.5-4.9); POTASSIUM 4.4 mmol/L (3.5-5.1); SODIUM SERUM 131 mmol/L (136-145); UREA NITROGEN, BLOOD 62 mg/dL (7-18)
[2018-08-12] MEDS: NEPRO 1,000 ML BOTTLE GT PRN (06:28)
--- NOTE | 2018-08-12 07:30 | NUR ---
RECEIVED PATIENT FROM RN. PATIENT EYES OPEN AND MOVING BUE WITH MITTENS IN PLACE FOR SAFETY. VENT SETTINGS PER MD ORDER AND TOLERATING. NO SOB, DIFFICULTY BREATHING OR PAIN NOTED. PATIENT UNABLE TO FOLLOW COMMANDS. ANURIC. WOUND NOTED AND ALL DRESSINGS C/D/I/P. NO BLEEDING NOTED FROM SACRAL WOUND; WILL MONITOR. HD CATH INTACT. LEFT IJ INTACT AND PATENT WITH GOOD BLOOD RETURN. PATIENT ON BOTH LEVO AND DEYA; SEE SPREADSHEET. DRESSING SOILED WILL CHANGE. PATIENT NOTED WITH BUE AV FISTULAS; LEFT AV FISTULA WITH BRUIT/THRILL. G TUBE WITH FEEDING PER ORDER WITHOUT RESIDUAL AT THIS TIME. SKIN SAFETY, ASPIRATION PRECAUTIONS IN PLACE AND WILL MONITOR.
--- NOTE | 2018-08-12 07:30 | NUR ---
REPORT GIVEN TO RAH THAYER,PATIENT STILL ON LEVOPHED AND NEOSYNERHRINE DRIP FOR BP SUPPORT ,HGB=8.7 POST 2 UNITS PRBC ALL NIGHT.PATIENT REMAINS AWAKE AND ALERT.
--- NOTE | 2018-08-12 07:33 | NUR ---
RT PATIENT REC'D TRACHED ON [facility] VENT WITH ORDERED SETTINGS IN CRITICAL CONDITION. VENT ALARMS CHECKED + AUDIBLE. CUFF PRESSURE CHECKED OUTBOUND TELEMARKETER. B/S DIM. SUCTIONED AIRWAY WITH SMALL AMT ARAMBULA SEMITHICK SECRETIONS. AMBU BAG AT [facility]. Addendum: 08/13/18 at 0728 by JADA MILES RT Amended: Links added.
[2018-08-12] MEDS: METOPROLOL TARTRATE 50 MG TABLET GT SCH ×2 (08:01→21:00)
[2018-08-12] MEDS: Z GUARD REMEDY 2 OZ OINT TP PRN ×2 (08:20→16:28)
[2018-08-12] MEDS: LINEZOLID RTU BAG 600 MG in PREMIX 1 EA IV SCH ×2 (08:21→21:24)
[2018-08-12] MEDS: CADEXOMER IODINE 40 GM TUBE TP SCH (08:21)
[2018-08-12] MEDS: ASCORBIC ACID 500 MG TABLET GT SCH (08:22)
[2018-08-12] MEDS: DAKINS QUARTER STRENGTH (0.125%) 480 ML BOTTLE TOP SCH ×2 (08:22→21:00)
[2018-08-12] MEDS: VIT B CMPLX 3/FA/VIT C/BIOTIN 1 TAB TABLET GT SCH (08:22)
[2018-08-12] MEDS: AMIODARONE HCL 200 MG TABLET GT SCH ×2 (08:22→22:27)
[2018-08-12] MEDS: ZINC SULFATE 220 MG CAPSULE GT SCH (08:22)
[2018-08-12] MEDS: ASPIRIN EC 81 MG TABLET.DR PO SCH (08:22)
[2018-08-12 09:40] LABS: ABG BASE EXCESS -14.8 mmol/L; ABG OXYGEN SATURATION 94.5 % (92.0-98.5); ABG PCO2 32.8 mmHg (35.0-45.0); ABG PH 7.188 (7.350-7.450); AaDO2 303.7 mmHg; COHb 0.3 % (0.5-1.5); O2Hb 93.3 % (94.0-97.0); SITE, ABG Right Radial
--- NOTE | 2018-08-12 09:47 | NUR ---
DR BUENO AWARE OF RECENT ABG PH OF 7.1. PER MD VENT SETTING CHANGES TV 450 AND AC 20. ORDER CHEST PHYSIOTHERAPY LEFT.
[2018-08-12 12:33] LABS: ABG BASE EXCESS -20.6 mmol/L; ABG OXYGEN SATURATION 92.2 % (92.0-98.5); ABG PCO2 30.7 mmHg (35.0-45.0); ABG PH 7.052 (7.350-7.450); ABG PO2 85.2 mmHg (75.0-100.0); AaDO2 308.8 mmHg; MetHb 0.9 % (0.0-1.5); O2Hb 91.4 % (94.0-97.0); SITE, ABG Right Radial
--- NOTE | 2018-08-12 12:35 | NUR ---
DR BUENO NOTIFIED OF CURRENT ABG. MORE ACIDOTIC 7.0 PH
--- NOTE | 2018-08-12 12:45 | NUR ---
per dr pinto please give 100meq bicarb push and start sodium acetate gtt 3amps in d5w at 100ml/hour. no vent changes
[2018-08-12] MEDS ORDERED: SODIUM BICARBONATE SYR 50 MEQ/50 ML DISP.SYRIN IV ONE (13:00)
[2018-08-12] MEDS ORDERED: EPOETIN ALFA (10,000 UNIT) 10,000 UNIT/ML VIAL SQ ONE (13:00)
--- NOTE | 2018-08-12 13:15 | NUR ---
NOTIFIED MD PATIENT LESS RESPONSIVE. NO LONGER REQUIRING MITTENS. WILL OPEN EYES MORE OR GRIMACE TO PAINFUL STIMULI ONLY. PUPILS REACTIVE HOWEVER SLUGGISH.
--- NOTE | 2018-08-12 13:15 | NUR ---
YURIY RN AND MYSELF SPOKE WITH SON JENAE BO AND UPDATED ON PATIENT CONDITION. PER SON HE WISHES PATIENT TO BE DNR. PLEASE CONTINUE AT THIS TIME WITH ALL MEDICATIONS AND BP SUPPORT HOWEVER IF PATIENT HEART STOPS PLEASE NO CPR AND ALLOW NATURAL . DR REYES AWARE AND UPDATED AND PER PLEASE ORDER DNR CODE STATUS.
[2018-08-12] MEDS: Sodium Acetate 150 MEQ in IV D5W 1,000 ML IV PRN (13:32)
--- NOTE | 2018-08-12 14:00 | NUR ---
PATIENT RIGHT PUPIL FIXED 5CM AND LEFT PUPIL 3CM SLUGGISH REACTION. PATIENT CONTINUES NON RESPONSIVE. WILL AT MOST GRIMACE TO PAINFUL STIMULI. DR WEINSTEIN AWARE AND PER MD PATIENT TOO UNSTABLE TO HAVE HEAD CT.
--- NOTE | 2018-08-12 14:15 | NUR ---
PATIENT SON AT BEDSIDE AND UPDATED ON PATIENT CONDITION, EXPLAINED MEDICATIONS, NO PUPIL REACTION. ALL QUESTIONS ANSWERED. PER SON HE WILL TRY TO BE BY TOMORROW AFTERNOON TO SPEAK WITH MD'S
[2018-08-12] MEDS: LACTOBACILLUS RHAMNOSUS GG 1 EACH CAP.SPRINK GT SCH (16:26)
[2018-08-12 16:46] LABS: BAND % (MANUAL) 21 % (0.0-5.0); LYMPHOCYTES % (MANUAL) 4 % (16-48); MONOCYTES % (MANUAL) 3 % (0-11.0); NEUTROPHILS % (MANUAL) 72 (42-76)
--- NOTE | 2018-08-12 19:00 | NUR ---
ALL DUE MEDS GIVEN AND ALL NEEDS MET. PATIENT RIGHT PUPIL NON RESPONSIVE. PATIENT NON RESPONSIVE TO PAINFUL STIMULI; DR Gay WEINSTEIN AWARE. PATIENT CONTINUES ON MAX DEYA AND 10 OF LEVO BP STABLE. IV SITES C/D/I/P WITH GOOD BLOOD RETURN. PENDING UPDATED HH. PATIENT EXTREMITIES CONTINUE COLD; WARM BLANKETS APPLIED. TOLERATING VENT NO SOB NOTED. G TUBE FEEDING PER ORDER NO RESIDUAL. SKIN CARE PER ORDER/PRN SOILING. NO S/S OVERT BLEEDING FROM SACRUM PATIENT CONTINUES DNR PER SON JENAE. SAFETY, SKIN, ASPIRATION PRECAUTIONS IN PLACE AND MONITORED.
--- NOTE | 2018-08-12 19:26 | NUR ---
EDUCATION PROFESSIONAL. INITIAL ASSESSMENT RECEIVED THE PT REST ON THE BED. TRACH TO VENT CONNECTED. PT IS VERY UNSTABLE. RT PUPIL FIXED AND DILATED. LT EYE VENT SETTINGS SHILEY#8,AC 20,TV 450,FIO2 60%, SAT 90%. HEADER DOCK SHOWING AFIB. IV LT IJ TRIPLE LUMEN DEYA 300MCG/MIN,RT SUBCLAVIAN HD CATH. LEVOPHED 10MCG/MIN, BICARB DRIP 100ML/H. HOB ELEVATED. GT INTACT. NEPRO 45ML/H. WILL CONTINUE TO MONITOR VITALS.
[2018-08-12 21:24] LABS: HEMOGLOBIN 5.9 g/dL (11.5-14.8)
--- NOTE | 2018-08-12 23:50 | NUR ---
CIVIL DESIGN SPECIALIST. H&H 5.9 MD ORDER 2UNITS PRBC. 1ST UNIT STARTED. DURING TRANSFUSION NO COMPLICATION NOTED. WILL CONTINUE TO MONITOR
[2018-08-13] VITALS (43 sets, daily range): BP systolic 60–127; BP diastolic 22–78
[2018-08-13] MEDS: NEPRO 1,000 ML BOTTLE GT PRN (00:39)
[2018-08-13] MEDS: PHENYLEPHRINE 80 MG in IV D5W 250 ML IV PRN ×3 (00:48→09:26)
--- NOTE | 2018-08-13 01:37 | NUR ---
HOSPITAL MONITOR. 2ND UNIT BLOOD STARTED. DURING TRANSFUSION NO COMPLICATION NOTED.
[2018-08-13] MEDS: IPRATROPIUM NEB FS 0.5 MG/2.5 ML AMPUL.NEB NEB SCH ×2 (01:46→07:11)
[2018-08-13] MEDS: NOREPINEPHRINE 16 MG in IV D5W 500 ML IV PRN ×2 (02:05→09:39)
[2018-08-13] MEDS: MEROPENEM 500 MG in IV NS 0.9% 50 ML IV SCH (03:43)
[2018-08-13] MEDS: Sodium Acetate 150 MEQ in IV D5W 1,000 ML IV PRN (03:43)
[2018-08-13 04:54] LABS: BASOPHILS % (AUTO) 0.1 % (0.0-2.0); EOSINOPHILS % (AUTO) 0.6 % (0.0-6.0); HEMATOCRIT 31 % (33-45); HEMOGLOBIN 9.1 g/dL (11.5-14.8); LYMPHOCYTES # (AUTO) 1.3 /CMM (0.8-4.8); LYMPHOCYTES % (AUTO) 3.5 % (20.0-44.0); MEAN CORPUSCULAR HGB CONC 30 g/dl (31.0-36.0); MEAN CORPUSCULAR VOLUME 99 fL (82-100); MONOCYTES # (AUTO) 1.3 /CMM (0.1-1.30); MONOCYTES % (AUTO) 3.4 % (2.0-12.0); NEUTROPHILS # (AUTO) 35.1 /CMM (1.8-8.9); NEUTROPHILS % (AUTO) 92.4 % (43.0-81.0); RED BLOOD CELL COUNT(AUTO) 3.11 MIL/uL (4.0-5.2)
[2018-08-13 05:15] LABS: CALCIUM, SERUM 7.6 mg/dL (8.5-10.1); CHLORIDE 91 mmol/L (98-107); CREATININE 1.7 mg/dL (0.6-1.3); GLUCOSE 188 mg/dL (74-106); MAGNESIUM 2.2 mg/dL (1.8-2.4); POTASSIUM 5.8 mmol/L (3.5-5.1); SODIUM SERUM 128 mmol/L (136-145); UREA NITROGEN, BLOOD 54 mg/dL (7-18)
[2018-08-13 05:31] LABS: CARBON DIOXIDE 6 mmol/L (21-32)
[2018-08-13 05:32] LABS: PHOSPHORUS 8.6 mg/dL (2.5-4.9)
[2018-08-13 05:34] LABS: PLATELET COUNT (AUTO) 45 /CMM (150-450)
[2018-08-13 05:55] LABS: BAND % (MANUAL) 54 % (0.0-5.0); LYMPHOCYTES % (MANUAL) 2 % (16-48); MONOCYTES % (MANUAL) 3 % (0-11.0); NEUTROPHILS % (MANUAL) 41 (42-76)
--- NOTE | 2018-08-13 06:04 | NUR ---
RUG SETTER AXMINSTER. NOTE, PT RECEIVING SAME VENT SETTING. SAT 93%. IV LT IJ TRIPLE LUMEN DURING SHIFT 2 UNITS PRBC GIVEN. LEVOPHED 35MCG/MIN,DEYA 250.MCG/MIN,BICARB DRIP 100ML/H. FIDEL PUPIL FIXED AND DILATED, NO GAG REFLEX, GT FEEDING ON, PT IS VERY UNSTABLE, WILL CONTINUE TO MONITOR
[2018-08-13] MEDS: ACETYLCYSTEINE 10% SOLN 400 MG/4 ML VIAL NEB SCH (07:11)
[2018-08-13] MEDS: ALBUTEROL HALF STRENGTH 1.25 MG/3 ML VIAL.NEB NEB SCH (07:11)
--- NOTE | 2018-08-13 07:24 | NUR ---
RT PATIENT REC'D TRACHED ON [facility] VENT WITH ORDERED SETTINGS IN CRITICAL CONDITION. VENT ALARMS CHECKED + AUDIBLE. CUFF PRESSURE CHECKED SPRINKLER FITTER. B/S DIM. SUCTIONED AIRWAY WITH SMALL AMT ARAMBULA SEMITHICK SECRETIONS. AMBU BAG AT [facility]. Addendum: 08/13/18 at 0728 by JADA MILES RT Amended: Links added.
--- NOTE | 2018-08-13 07:25 | NUR ---
RECEIVED REPORT FROM JEOVANY BETH. PATIENT VENT TRACH WITH VENT PER ORDER. PULSE OX 92% WITH GOOD READING BUT DENSE WAVEFORM. WARMING BLANKETS APPLIED TO PATIENT. TUBE FEEDING PER ORDER NO RESIDUAL. PATIENT IS COMATOSE. NO GAG REFLEX WITH ORAL CARE OR SUCTIONING. NOR PUPIL REFLEX PRESENT. RIGHT PUPIL FIXED 5CM AND LEFT PUPIL FIXED 3 CM. PATIENT EXTREMITIES COLD AND PULSES UNABLE TO BE FELT HOWEVER AUDIBLE WITH DOPPLER. FINGER TIPS ARE BLUE AND COVERED WITH BLANKETS.
--- NOTE | 2018-08-13 07:56 | NUR ---
CALLED SON JENAE TO COME TO HOSPITAL DUE TO PATIENT CRITICAL CONDITION.
--- NOTE | 2018-08-13 08:00 | NUR ---
DR REYES UPDATED ON PATIENT CONDITION THIS AM. PUPILS NON RESPONSIVE, HYPOTENSION, MAXED OUT ON DEYA AND LEVO. NO GAG REFLEX AND NO RESPONSE WITH PAINFUL STIMULI. MD AWARE SON ON WAY AND WILL SPEAK WITH SON JENAE AT BEDSIDE
--- NOTE | 2018-08-13 08:00 | NUR ---
TURNED FEEDING OFF. NO RESIDUAL HOWEVER BOWEL SOUNDS VERY HYPOACTIVE AND PATIENT REQUIRING POSITIONING TO ASSIST BP.
--- NOTE | 2018-08-13 08:45 | NUR ---
SON AT BEDSIDE AND UPDATED ON PATIENT CONDITION LABS VS AND MEDICATIONS.
[2018-08-13] MEDS: METOPROLOL TARTRATE 50 MG TABLET GT SCH (09:00)
[2018-08-13] MEDS: AMIODARONE HCL 200 MG TABLET GT SCH (09:00)
[2018-08-13] MEDS: VIT B CMPLX 3/FA/VIT C/BIOTIN 1 TAB TABLET GT SCH (09:00)
[2018-08-13] MEDS: ASCORBIC ACID 500 MG TABLET GT SCH (09:00)
[2018-08-13] MEDS: DAKINS QUARTER STRENGTH (0.125%) 480 ML BOTTLE TOP SCH (09:00)
[2018-08-13] MEDS: ZINC SULFATE 220 MG CAPSULE GT SCH (09:00)
[2018-08-13] MEDS: CADEXOMER IODINE 40 GM TUBE TP SCH (09:00)
[2018-08-13] MEDS: ASPIRIN EC 81 MG TABLET.DR PO SCH (09:00)
[2018-08-13] MEDS: LACTOBACILLUS RHAMNOSUS GG 1 EACH CAP.SPRINK GT SCH (09:00)
[2018-08-13] MEDS: LINEZOLID RTU BAG 600 MG in PREMIX 1 EA IV SCH (09:26)
--- NOTE | 2018-08-13 09:30 | NUR ---
NON ADMIN ALL GT MEDICATIONS PATIENT HAD TUBE FEEDING COME OUT OF MOUTH. NO RESIDUALS THROUGH GT. ORAL CARE COMPLETED AND PATIENT SUCTIONED. EXCESSIVE SECRETIONS FROM TRACH SITE DR BUENO AWARE. UNABLE TO REPOSITION PATIENT FOR WOUND CARE/ OFFLOADING PATIENT REMAINS CRITICAL CONDITION
--- NOTE | 2018-08-13 10:05 | NUR ---
unable to complete wound care s/t patient critical condition Addendum: 08/13/18 at 1034 by RAH WINSLOW RN Amended: Links added.
--- NOTE | 2018-08-13 10:08 | NUR ---
dr pinto at bedside. son notified spoke with family and they are in agreement to have patient transferred to comfort measures. son will try to get a hold of their standards engineer. i called multiple pastors listed on our resources and left messages.
--- NOTE | 2018-08-13 10:21 | NUR ---
comfort measures only per dr pinto order and per son corey de leon request. per son he wishes to speak with his oracle database architect over the phone before we dc medications.
[2018-08-13] MEDS ORDERED: MORPHINE SULFATE INJ 2 MG/ML DISP.SYRIN IV PRN (10:30)
[2018-08-13] MEDS ORDERED: DC PROPOFOL WHEN EXTUBATED XX PRN (10:30)
[2018-08-13] MEDS ORDERED: MORPHINE SULFATE INJ 4 MG/ML DISP.SYRIN IV PRN (10:30)
--- NOTE | 2018-08-13 10:33 | NUR ---
provided jillian nicole with a list of mortuary/ homes per request
--- NOTE | 2018-08-13 11:35 | NUR ---
bp not reading. pulses auscultated with doppler left fem
--- NOTE | 2018-08-13 11:50 | NUR ---
bp not reading. pulses auscultated with doppler left fem
--- NOTE | 2018-08-13 11:52 | NUR ---
PER MD PELEG ORDER PATIENT DISCONNECTED FROM VENT. RT ELIAS AT BEDSIDE. SON AT BEDSIDE
--- NOTE | 2018-08-13 11:52 | NUR ---
RT PER MD ORDER PATIENT ON COMFORT MEASURES HAS . [facility] VENTILATOR WAS TURNED OFF WITH NO PULSES OR RESPIRATIONS. SON AT BEDSIDE.
--- NOTE | 2018-08-13 11:59 | NUR ---
patient asystole. no pulses present. no heart beat. jesus alberto ignacio at bedside to confirm. dr Wilson at bedside during time of patient expiration and aware.
--- NOTE | 2018-08-13 12:10 | NUR ---
called [facility] to notify of patient expiration case # [id number] spoke with Emmanuelle
--- NOTE | 2018-08-13 13:00 | NUR ---
post mortem care completed
--- NOTE | 2018-08-13 14:30 | NUR ---
patient taken down to the morgue. chart given to cloth shearing supervisor vick
== END 2018-08-13 11:59 | disposition expired | DRG 853 ==
LOC: ER 18:32 → TELE1 22:50 → ICU 08-11 05:28
PROVIDERS: ADMIT Internal Medicine
PROC: 5A1955Z Respiratory Ventilation, Greater than 96 Consecutive Hours (ICD-10-PCS; 2018-08-08)
PROC: 5A1D70Z Performance of Urinary Filtration, Intermittent, Less than 6 Hours Per Day (ICD-10-PCS; 2018-08-09)
PROC: 0JBQ0ZZ Excision of Right Foot Subcutaneous Tissue and Fascia, Open Approach (ICD-10-PCS; principal; 2018-08-10)
PROC: 0KBP0ZZ Excision of Left Hip Muscle, Open Approach (ICD-10-PCS; principal; 2018-08-10)
PROC: 5A1D70Z Performance of Urinary Filtration, Intermittent, Less than 6 Hours Per Day (ICD-10-PCS; principal; 2018-08-10)
PROC: 0JBN0ZZ Excision of Right Lower Leg Subcutaneous Tissue and Fascia, Open Approach (ICD-10-PCS; principal; 2018-08-10)
PROC: 0KBN0ZZ Excision of Right Hip Muscle, Open Approach (ICD-10-PCS; principal; 2018-08-10)
PROC: 0JBP0ZZ Excision of Left Lower Leg Subcutaneous Tissue and Fascia, Open Approach (ICD-10-PCS; principal; 2018-08-10)
PROC: 30233N1 Transfusion of Nonautologous Red Blood Cells into Peripheral Vein, Percutaneous Approach (ICD-10-PCS; 2018-08-11)
PROC: 5A1D70Z Performance of Urinary Filtration, Intermittent, Less than 6 Hours Per Day (ICD-10-PCS; 2018-08-11)
PROC: 05HN33Z Insertion of Infusion Device into Left Internal Jugular Vein, Percutaneous Approach (ICD-10-PCS; 2018-08-11)
PROC: B544ZZA Ultrasonography of Left Jugular Veins, Guidance (ICD-10-PCS; 2018-08-11)
DX: A41.9 Sepsis, unspecified organism (principal); R65.21 Severe sepsis with septic shock; G93.41 Metabolic encephalopathy; L89.154 Pressure ulcer of sacral region, stage 4; L89.894 Pressure ulcer of other site, stage 4; Z51.5 Encounter for palliative care; L89.514 Pressure ulcer of right ankle, stage 4; L89.623 Pressure ulcer of left heel, stage 3; R53.2 Functional quadriplegia; N18.6 End stage renal disease; I13.2 Hypertensive heart and chronic kidney disease with heart failure and with stage 5 chronic kidney disease, or end stage renal disease; J96.11 Chronic respiratory failure with hypoxia; Z99.11 Dependence on respirator [ventilator] status; E87.1 Hypo-osmolality and hyponatremia; J98.11 Atelectasis; J93.9 Pneumothorax, unspecified; J98.19 Other pulmonary collapse; L89.310 Pressure ulcer of right buttock, unstageable; E11.22 Type 2 diabetes mellitus with diabetic chronic kidney disease; E87.5 Hyperkalemia; I50.9 Heart failure, unspecified; Z99.2 Dependence on renal dialysis; K21.9 Gastro-esophageal reflux disease without esophagitis; I25.10 Atherosclerotic heart disease of native coronary artery without angina pectoris; D63.8 Anemia in other chronic diseases classified elsewhere; F03.90 Unspecified dementia, unspecified severity, without behavioral disturbance, psychotic disturbance, mood disturbance, and anxiety; I48.91 Unspecified atrial fibrillation; Z86.74 Personal history of sudden cardiac arrest; Z66 Do not resuscitate; Z93.1 Gastrostomy status; R13.10 Dysphagia, unspecified; S41.112A Laceration without foreign body of left upper arm, initial encounter; S41.111A Laceration without foreign body of right upper arm, initial encounter; X58.XXXA Exposure to other specified factors, initial encounter; Y93.9 Activity, unspecified; Y92.129 Unspecified place in nursing home as the place of occurrence of the external cause; L98.8 Other specified disorders of the skin and subcutaneous tissue; T17.990A Other foreign object in respiratory tract, part unspecified in causing asphyxiation, initial encounter; L89.610 Pressure ulcer of right heel, unstageable; Z79.4 Long term (current) use of insulin; E11.51 Type 2 diabetes mellitus with diabetic peripheral angiopathy without gangrene
CPT/HCPCS: 31720; 36415; 36600; 71045-TC; 72220-TC; 80048-TC; 80053-TC; 80061-TC; 80074; 80076-TC; 82247-TC; 82248-TC; 82272-TC; 82803-TC; 82962-TC; 83540-TC; 83605-TC; 83735-TC; 84100-TC; 84443-TC; 84484-TC; 85025-TC; 85027-TC; 85610-TC; 85730-TC; 86706; 86850-TC; 86921-TC; 87040-TC; 87070-TC; 87081-TC; 87186-TC; 87340; 90935-TC; 94003-TC; 94760-TC; 94762-TC; A4216; A6253; A6402; A6403; A7526; C1751; G0378; J0885; J2020; J2185; J2270; J2370; J3490; J7040; J7050; J7060; J7070; P9016-BL